=== PATIENT | male | born 1980 | race Caucasian/White ===

== ENCOUNTER 2016-07-09 08:19 | Emergency (ER) | payer SELFPAY ==
[~2016-07-09] VITALS: Ht 182.9 cm; Wt 83.9 kg
[~2016-07-09 08:19] MED LIST: ALBU17AE3 IH; AMOX500C2 PO; GFCD10B PO; HYDR1CAP2 PO; NAPR-243 PO
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
[2016-07-09] MEDS ORDERED: SULF1TAB35 PO (08:37)
[2016-07-09] MEDS ORDERED: MUPI22OI2 TP (08:37)
[2016-07-09] MEDS ORDERED: TETANUS,DIPTH,PERTUSS P/F (BOOSTRIX) 0.5 ML VIAL IM ONE (08:45)
[2016-07-09 08:48] VITALS: BP 138/94
== END 2016-07-09 08:48 | disposition home or self-care (01) ==
LOC: EDUNIT# 08:19 → ER 08:22
DX: S51.812A Laceration without foreign body of left forearm, initial encounter (principal); Z23 Encounter for immunization; W26.0XXA Contact with knife, initial encounter; Y99.8 Other external cause status
CPT/HCPCS: 90471; 90715; 99282

== ENCOUNTER → 2016-11-14 | Emergency (ER) | payer OTHER ==
[~2016-11-14] VITALS: Ht 182.9 cm; Wt 83.9 kg
[~2016-11-14] MED LIST changes: +L.E.T. SYRINGE 5 ML TOP ONE; +MUPI22OI2 TP; +SULF1TAB35 PO; +TRIM/SULFAMETH 160/800 (SEPTRA DS) TAB PO ONE
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
[2016-11-14 02:40] VITALS: BP 130/75
== END | disposition home or self-care (01) ==
LOC: EDUNIT# 00:36 → ER 00:39
DX: S01.81XA Laceration without foreign body of other part of head, initial encounter (principal); W22.09XA Striking against other stationary object, initial encounter
CPT/HCPCS: 12011

== ENCOUNTER 2016-12-08 14:01 | Emergency (ER) | payer SELFPAY ==
[~2016-12-08] VITALS: Ht 182.9 cm; Wt 81.6 kg
[~2016-12-08 14:01] MED LIST changes: -L.E.T. SYRINGE 5 ML TOP ONE; -TRIM/SULFAMETH 160/800 (SEPTRA DS) TAB PO ONE
[2016-12-08] MEDS ORDERED: HYDR-757 PO (14:20)
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
--- NOTE | 2016-12-08 14:38 | Diagnostic Imaging Report ---
INDICATION: Pain status post injury. COMPARISON: None. FINDINGS: 3 views of the left hand show no fractures, dislocations, or other acute bony abnormalities identified. Joint spaces are well maintained throughout. The soft tissues appear unremarkable. No radiopaque foreign bodies are identified. IMPRESSION: No acute fractures or dislocations of the left hand. Dictated by: Dictated on workstation # [id number]
--- NOTE | 2016-12-08 14:38 | Diagnostic Imaging Report ---
INDICATION: Pain status post injury. COMPARISON: 12/09/2008. FINDINGS: Three radiographic views of the right ankle were obtained. Extraosseous calcification is again identified distal to the right fibular tip. This is stable when compared to 12/09/2008. Otherwise, no new acute bony abnormality is seen. There is no other radiographic evidence of acute fracture or dislocation. Joint spaces are preserved. No unexpected radiopaque foreign bodies are seen. IMPRESSION: 1. No radiographic evidence of acute fracture dislocation of the right ankle. 2. Probable old fibular avulsion fracture. Dictated by: Dictated on workstation # [id number]
--- NOTE | 2016-12-08 14:38 | Diagnostic Imaging Report ---
INDICATION: Right-sided chest pain. Recent injury. COMPARISON: 09/05/2009. FINDINGS: Frontal and lateral views of the chest demonstrate normal heart size and pulmonary vascularity. The lungs are clear. There are no signs of infiltrate, pleural effusions or pneumothoraces. The visualized osseous structures show no acute abnormalities. IMPRESSION: 1. No acute process. No signs of infiltrates, effusions or pneumothoraces. Dictated by: Dictated on workstation # [id number]
[2016-12-08 14:54] VITALS: BP 127/80
== END 2016-12-08 14:54 | disposition home or self-care (01) ==
LOC: EDUNIT# 14:01 → ER 14:03
DX: S63.609A Unspecified sprain of unspecified thumb, initial encounter (principal); S20.212A Contusion of left front wall of thorax, initial encounter; S90.511A Abrasion, right ankle, initial encounter; V86.59XA Driver of other special all-terrain or other off-road motor vehicle injured in nontraffic accident, initial encounter
CPT/HCPCS: 71020; 73130; 73610; 99282

== ENCOUNTER 2018-04-14 15:30 | Emergency (ER) | payer SELFPAY ==
[~2018-04-14] VITALS: Ht 185.4 cm; Wt 83.9 kg
[~2018-04-14 15:30] MED LIST changes: +HYDR-4226 PO
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
[2018-04-14] MEDS ORDERED: HYDROcodone/APAP 5 MG/325 MG (LORTAB) TAB PO ONE (16:00)
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
[2018-04-14 16:29] VITALS: BP 136/94
== END 2018-04-14 16:28 | disposition home or self-care (01) ==
LOC: EDUNIT# 15:30 → ER 15:32
DX: S63.92XA Sprain of unspecified part of left wrist and hand, initial encounter (principal); F17.210 Nicotine dependence, cigarettes, uncomplicated; W18.09XA Striking against other object with subsequent fall, initial encounter
CPT/HCPCS: 73110; 73130